=== PATIENT | male | born 1945 | race Caucasian/White ===

== ENCOUNTER 2022-05-19 05:53 | Inpatient (IN) | payer MEDICARE, BC ==
[2022-05-15 11:15] LABS: BASOPHILS % (AUTO) 0.7 % (0-1); EOSINOPHILS # (AUTO) 0.1 X10'3 (0-0.9); EOSINOPHILS % (AUTO) 1.6 % (0-6); LYMPHOCYTES % (AUTO) 22.2 % (21-51); MEAN CORPUSCULAR HEMOGLOBIN 30.2 PG (27.0-31.0); MEAN CORPUSCULAR HGB CONC 33.4 g/dL (33.0-36.5); MEAN CORPUSCULAR VOLUME 90.7 FL (78-98); MEAN PLATELET VOLUME 7.8 FL (7.4-10.4); MONOCYTES # (AUTO) 0.5 X10'3 (0-0.9); MONOCYTES % (AUTO) 10.4 % (2-12); NEUTROPHILS # (AUTO) 3.1 X10'3 (1.8-7.7); NEUTROPHILS % (AUTO) 65.1 % (42-75); PRE OP PLATELET COUNT 232 X10'3 (140-440); RED BLOOD COUNT 4.97 X10'6 (4.70-6.10); RED CELL DISTRIBUTION WIDTH 14.3 % (11.5-14.5)
[2022-05-15 11:28] LABS: ALBUMIN/GLOBULIN RATIO 1.2 (1.1-1.5); ALKALINE PHOSPHATASE 80 IU/L (46-116); BLOOD UREA NITROGEN 33 MG/DL (7-18); BUN/CREATININE RATIO 16.3 (10.0-20.0); CALCIUM 8.9 MG/DL (8.5-10.1); CHLORIDE 106 MMOL/L (99-107); CREATININE 2.03 MG/DL (0.60-1.10); PRE OP ALT 22 U/L (30-65); PRE OP ANION GAP 6 (8-16); PRE OP AST 16 U/L (10-37); PRE OP BILIRUB, TOTAL 0.6 MG/DL (0.0-1.0); PRE OP GLUCOSE 99 MG/DL (70-104); PRE OP POTASSIUM 4.1 MMOL/L (3.4-5.1); PRE OP SODIUM 140 MMOL/L (135-145); TOTAL PROTEIN 7.4 G/DL (6.4-8.2); eGFR 32 ML/MIN
[~2022-05-19] VITALS: Ht 172.7 cm; Wt 76.4 kg
[2022-05-19] VITALS (26 sets, daily range): BP systolic 105–137; BP diastolic 54–82
[~2022-05-19 05:53] MED LIST: AMLO5TAB PO; MECO10005 PO; SODI650T29 PO; cefazolin 2gm/D5W 100mL 100 ML IV ONE; famotidine 20mg tablet PO ONE; normal saline 1000ml 1,000 ML IV SCH; tranexamic acid 650mg tablet PO ONE; vancomycin 1,500 MG in NS 300ml IV soln IV ONE
[2022-05-19] MEDS ORDERED: meperidine/PF 25mg/ml syringe IV PRN ×3 (09:25)
[2022-05-19] MEDS ORDERED: ondansetron/PF 4mg/2ml inj IV PRN ×2 (09:25→12:05)
[2022-05-19] MEDS ORDERED: ringers solution, lacted 1,000 ML IV SCH (09:25)
[2022-05-19] MEDS ORDERED: morphine 4 MG/ML inj SYRINge IV PRN (09:25)
[2022-05-19] MEDS ORDERED: proCHLORperazine 10 MG/2 ml inj IV PRN (09:25)
[2022-05-19] MEDS ORDERED: morphine 2 MG/ML inj. syringe IV PRN (09:25)
[2022-05-19] MEDS ORDERED: fentaNYL/PF 50MCG/1 ML 2ML syringe ONE (09:58)
[2022-05-19] MEDS ORDERED: midazolam 1 mg/ML 2ml injection ONE (09:58)
[2022-05-19] MEDS ORDERED: ROPIVAcaine 0.5% (5mg/ml) 30ml vial ONE (10:01)
[2022-05-19] MEDS ORDERED: dexamethasone sod phosphate 4mg/ml inj. ONE (10:01)
[2022-05-19] MEDS ORDERED: ROPIVAcaine 0.2% (10 MG/5 ML) BOLUS INJECTION INTERSCALE PRN (11:25)
[2022-05-19] MEDS ORDERED: ROPIVAcaine 0.2%/PF PUMP/bolus 545 ML INTERSCALE SCH (11:26)
[2022-05-19] MEDS ORDERED: ondansetron/PF 4mg/2ml inj ONE (11:53)
[2022-05-19] MEDS ORDERED: propofol inj 20 ML IV ONE (11:53)
[2022-05-19] MEDS ORDERED: naloxone 0.4 mg/ml inj IV PRN (12:05)
[2022-05-19] MEDS ORDERED: diphenhydrAMINE 25mg capsule PO PRN ×2 (12:05)
[2022-05-19] MEDS ORDERED: acetaminophen 325mg tablet PO PRN (12:05)
[2022-05-19] MEDS ORDERED: magnesium hydroxide 30ml (MOM) UD suspension PO PRN (12:05)
[2022-05-19] MEDS ORDERED: bisacodyl 10mg suppository rectal RC PRN (12:05)
--- NOTE | 2022-05-19 12:10 | NUR ---
Received from OR via BED, accompanied by Anesthesiologist, DR CHAVEZ-report given by Anesthesiologist. PATIENT WAKING UP, NO S/S OF PAIN, V/S WNL, SCD ON, 20G TO LUE, drsg to shoulder-CDI with POWDER PACK AND SLING PRESENT, NEURO INTACT, ABLE TO MOVE FINGERS-PINK/WARM, PULSE PRESENT ON-Q CATHETER PRESENT, UNABLE TO PLACE F/C IN OR-WILL ATTEMPT TO PLACE IN RR.
--- NOTE | 2022-05-19 12:30 | NUR ---
16 FR FRENCH CATHETER PLACED BY RN -PT TOLERATED WELL, HAD LARGE VOLUME OF YELLOW URINE OUT.
[2022-05-19] MEDS ORDERED: LidoCAINE 2% Topical Jelly 11mL syringe MM ONE (12:45)
--- NOTE | 2022-05-19 15:30 | NUR ---
PT HAS EATEN LUNCH, VSS, DENIES PAIN, ON-Q ATTACHED AND STARTED AT 2ML/HR, NO COMPLAINTS FROM PT-RESTING COMFORTABLY, WAITING FOR NURSE TO BE AVAILABLE
[2022-05-19] MEDS: ceFAZolin/D5W- 1GM premix 50 ML IV SCH (16:06)
--- NOTE | 2022-05-19 17:30 | NUR ---
NO CHANGES IN ASSESSMENT, VSS, F/C EMPTIED AND RECORDED, REPORT CALLED TO LYNDON RN-ALL QUESTIONS ANSWERED, PT TAKEN TO ROOM 359B-MOVED TO NEW BED D/T FEET NOT WORKING ON CURRENT BED, BED LOW AND LOCKED, SENIOR COST ANALYST IN TO RECEIVE PT.
--- NOTE | 2022-05-19 18:00 | NUR ---
Resting quietly, at bedside.
[2022-05-19] MEDS: sodium bicarbonate 650mg tablet PO SCH (19:58)
[2022-05-19] MEDS ORDERED: sennosides 8.6mg tablet PO SCH (21:00)
[2022-05-20] MEDS: ceFAZolin/D5W- 1GM premix 50 ML IV SCH (00:26)
[2022-05-20 02:00] VITALS: BP 128/72
[2022-05-20 04:00] VITALS: BP 124/68
[2022-05-20 06:29] LABS: BASOPHILS % (AUTO) 0.3 % (0-1); EOSINOPHILS % (AUTO) 0.1 % (0-6); HEMATOCRIT 38.5 % (42.0-52.0); HEMOGLOBIN 12.8 g/dl (14.0-17.9); LYMPHOCYTES # (AUTO) 1.1 X10'3 (1.1-4.8); LYMPHOCYTES % (AUTO) 10.5 % (21-51); MEAN CORPUSCULAR HGB CONC 33.2 g/dL (33.0-36.5); MEAN CORPUSCULAR VOLUME 90.4 FL (78-98); MEAN PLATELET VOLUME 7.7 FL (7.4-10.4); MONOCYTES # (AUTO) 1.1 X10'3 (0-0.9); NEUTROPHILS # (AUTO) 8.5 X10'3 (1.8-7.7); NEUTROPHILS % (AUTO) 79.1 % (42-75); PLATELET COUNT 228 X10'3 (140-440); RED BLOOD COUNT 4.27 X10'6 (4.70-6.10); RED CELL DISTRIBUTION WIDTH 14.7 % (11.5-14.5); WHITE BLOOD COUNT 10.7 X10'3 (4.5-11.0)
[2022-05-20 06:38] LABS: ANION GAP 9 (8-16); CHLORIDE 109 MMOL/L (99-107); POTASSIUM 3.9 MMOL/L (3.5-5.1); SODIUM 142 MMOL/L (135-145); TOTAL CARBON DIOXIDE 24.2 MMOL/L (24-32)
[2022-05-20 06:58] VITALS: BP 137/75
[2022-05-20] MEDS ORDERED: amLODIPine 5mg tablet PO SCH (08:00)
[2022-05-20] MEDS ORDERED: MECOBALAMIN PO SCH (08:00)
[2022-05-20] MEDS ORDERED: aspirin 325mg tablet PO SCH (08:30)
[2022-05-20] MEDS: sodium bicarbonate 650mg tablet PO SCH (09:21)
[2022-05-20 10:00] VITALS: BP 141/76
--- NOTE | 2022-05-20 12:01 | NUR ---
Joint surgery consult: Pt s/p R shoulder surgery this admit per EMR. Pt/SO seen by KRISSY for written/verbal high protein diet ed w/ RD contact information provided. KRISSY encouraged pt to contact dietitian's office if further nutrition questions/concerns. Addendum: 05/20/22 at [address] Amended: Links added.
== END 2022-05-20 14:25 | disposition home or self-care (01) | DRG 483 ==
LOC: PAS IN 05:53 → SUR 3N 18:01
PROVIDERS: ADMIT Orthopaedic Surgery; ATTEND Orthopaedic Surgery
PROC: 0LS30ZZ Reposition Right Upper Arm Tendon, Open Approach (ICD-10-PCS; 2022-05-19)
PROC: 3E0T3BZ Introduction of Anesthetic Agent into Peripheral Nerves and Plexi, Percutaneous Approach (ICD-10-PCS; 2022-05-19)
PROC: 3E0T33Z Introduction of Anti-inflammatory into Peripheral Nerves and Plexi, Percutaneous Approach (ICD-10-PCS; 2022-05-19)
PROC: 0RRJ00Z Replacement of Right Shoulder Joint with Reverse Ball and Socket Synthetic Substitute, Open Approach (ICD-10-PCS; principal; 2022-05-19 09:53)
DX: M19.011 Primary osteoarthritis, right shoulder (principal); M65.811 Other synovitis and tenosynovitis, right shoulder; M75.121 Complete rotator cuff tear or rupture of right shoulder, not specified as traumatic; M75.21 Bicipital tendinitis, right shoulder; Z79.899 Other long term (current) drug therapy
CPT/HCPCS: 36415; 80051; 80053; 82948; 85025; 87081; 97110; 97161; 97530; A4565; A4618; A7000; C1776; G0378; J0690; J1100; J2250; J2405; J2704; J2795; J3010; J3370; J3490; J7030; J7040; J7120